=== PATIENT | female | born 1930 | race Caucasian/White ===

== ENCOUNTER 2016-08-25 11:12 | Inpatient (IN) ==
[2016-08-25] MEDS ORDERED: 0.9 % Sodium Chloride 1,000 ML IVC ONE (11:19)
--- NOTE | 2016-08-25 11:25 | Emergency Department Note ---
START Narrative - START START: I examined this patient and my medical decision-making was reviewed with the ADULT MANAGER/PA/Advanced Practice Nurse/Resident Physician. I agree with the documented findings, disposition and treatment plan as described except to the extent set forth below. ED attending note: Patient seen with emergency medicine resident Dr. Gale. Please see a copy of his note for details of the H&P, evaluation, management and disposition of this patient. We independently had [id number] contact with the patient Briefly: A 85-year-old PT from home, transported by EMS for 5 days ago and otherwise weakness unable to ambulate for the past 2 days with periods of increasing confusion and nausea. Patient is neurologically nonfocal now with an daughter at bedside states that she has been sleeping all the time for the past few days. Patient will undergo CT scan ED workup and admission. Disposition pending.
--- NOTE | 2016-08-25 11:26 | Emergency Department Note ---
Disposition Clinical Impression: Weakness, Altered mental status Disposition: Admitted As Inpatient Condition: Good Referrals: NO,PCP [Non-Partnered Physician] - Forms: ED Satisfaction Letter Time of Disposition: 14:14 General Adult HPI - General Chief complaint: ED Altered Mental Status Stated complaint: AMS Time Seen by Provider: 08/25/16 11:16 Source: patient, family, EMS Mode of arrival: EMS Limitations: altered mental status Nursing Notes Reviewed: Yes Vital Signs Reviewed: Yes - History of Present Illness HPI Narrative: Patient presents to the ED via EMS as a transfer from [place] emergency department for generalized weakness and altered mental status. Patient presented to the other emergency Department today from home. The chief complaint of weakness. Patient has a history of dementia and is at baseline mental status, but family states has been more sleepy than usual since they woke her up early this morning. States that she is normally fully ambulatory, but had to have help getting up to go to the bathroom today. Patient states that she just feels tired but otherwise has no symptoms. She denies any headache, changes in vision, chest pain, shortness of breath, nausea, vomiting, diarrhea, abdominal pain, numbness or weakness in her extremities. Family is concerned because they had to help her get up to the side of the bed and she normally does not have to have help. They state that she felt very weak in her legs and was having some slurred speech. Unsure of when this started - Related Data Previous Rx's Medication Instructions Recorded Ondansetron [Zofran ODT] 8 mg SL TID #15 tab.rapdis 08/24/16 Allergies Allergy/AdvReac Type Severity Reaction Status Date / Time Belladonna Alkaloids AdvReac Hives Verified 08/24/16 16:51 [From Bellergal-S] Ergotamine [From Bellergal-S] AdvReac Hives Verified 08/24/16 16:51 Penicillins AdvReac Hives Verified 08/24/16 16:49 phenobarbital AdvReac Hives Verified 08/24/16 16:51 [From Bellergal-S] Sulfa (Sulfonamide AdvReac Hives Verified 08/24/16 16:49 Antibiotics) All systems ED: reviewed and negative except as stated. Neurological: Reports: weakness, confusion Past Medical History - Past Medical History Attestation: Yes The following information was validated with the patient. Source: patient, old records reviewed - Social History Smoking Status: Never smoker Smokeless Tobacco Status: No Alcohol use: Reports: none Physical Exam - General Limitations: other (dementia ) General appearance: alert, in no apparent distress - Head Head exam: atraumatic, normocephalic, normal inspection - Eye Eye exam: Present: normal appearance, PERRL, EOMI - ENT ENT exam: normal exam, normal oropharynx, mucous membranes moist - Neck Neck exam: Present: normal inspection, full ROM, trachea midline - Chest Chest inspection: Present: normal inspection, symmetric chest wall rise - Respiratory Respiratory exam: Present: normal lung sounds bilaterally - Cardiovascular Cardiovascular exam: Present: regular rate, normal rhythm, normal heart sounds - Abdominal Exam Abdominal exam: Present: soft, Non-Tender. Absent: tenderness, distention, guarding, rebound, rigidity - Extremities Exam Extremities exam: Present: normal inspection, full ROM, normal capillary refill , pedal edema (mild ). Absent: tenderness - Expanded Lower Extremity Exam Hip/Pelvis exam: Present: pelvis stable - Neurological Exam Neurological exam: Present: alert, CN II-XII intact. Absent: oriented X3 ( Oriented to person and somewhat place. She knows her name, thinks she is in [place], but was at the [place] emergency department. Thinks it is 2001) - Expanded Neurological Exam Patient oriented to: Present: person, place, time Speech: Present: fluid speech (Patient's speech seems normal to me. However, the family states that they feel like she is slurring some words) Cranial nerves: EOM function (II, III, IV, ): Normal, facial sensation (V): Normal, facial palsy (VII): Normal, spinal accessory function (XI): Normal, tongue deviation (XII): Normal Cerebellar function: finger to nose: Normal Motor strength - LUE: 5/5 Motor strength - RUE: 5/5 Motor strength - LLE: 5/5 Motor strength - RLE: 5/5 Upper motor neuron exam: nery neglect: Absent bilaterally, pronator drift: Absent bilaterally Sensory exam upper extremity: light touch: Normal Sensory exam lower extremity: light touch: Normal Coma Scale Eye Opening: Spontaneous Coma Scale Motor Response: Obeys Commands Coma Scale Verbal Response: Oriented Coma Scale Total: 15 - Psychiatric Psychiatric exam: Present: normal affect, normal mood - Skin Skin exam: Present: warm, dry, intact, normal color Course Course Narrative: 85 -year-old female presenting with altered mental status, confusion and generalized weakness. Has been relatively healthy and at baseline otherwise. We will get a CT head, urinalysis, chest x-ray and labs. Likely admit. - Reevaluation(s) Reevaluation #1: Workup does not show anything focal. However, the family does have concerning. We will admit for MRI and further monitoring. Neurological exam remains normal Vital Signs Temperature 98.3 F 08/25/16 11:15 Pulse Rate 60 08/25/16 11:15 Respiratory Rate 18 08/25/16 11:15 Blood Pressure 162/83 08/25/16 11:15 O2 Sat by Pulse Oximetry 97 08/25/16 11:15 Temperature 98.3 F 08/25/16 11:15 Pulse Rate 69 08/25/16 13:38 Respiratory Rate 16 08/25/16 13:38 Blood Pressure 163/77 08/25/16 13:38 O2 Sat by Pulse Oximetry 98 08/25/16 13:38 Oxygen Delivery Oxygen Delivery Room Air Medical Decision Making - Medical Records Medical records reviewed: Yes I reviewed the patient's medical records. - Lab Data Lab results reviewed: Yes I reviewed the patient's lab results. Result diagrams: 08/25/16 11:40 08/25/16 11:40 Lab Results 08/25/16 08/25/16 08/25/16 Range/Units 11:31 11:40 11:40 WBC 7.1 (4.3-11.1) K/mcL RBC 4.54 (3.82-4.97) M/mcL Hgb 12.9 (11.5-15.4) g/dL Hct 38.6 (35.3-44.9) % MCV 85.0 (83.0-100.0) fL MCH 28.4 (28.0-33.3) pg MCHC 33.4 (31.6-35.5) g/dL RDW 13.1 (11.5-14.5) % Plt Count 186 (140-400) K/mcL MPV 11.0 (9.4-12.4) fL Immature Gran % 0.3 (0-4) % Seg Neutrophils % 75.3 % Lymphocytes % 15.9 % Monocytes % 7.9 % Eosinophils % 0.3 % Basophils % 0.3 % Neutrophils # 5.4 (1.6-8.9) K/mcL Lymphocytes # 1.1 (0.6-4.6) K/mcL Monocytes # 0.6 (0.0-1.3) K/mcL Eosinophils # 0.0 (0.0-0.6) K/mcL Basophils # 0.0 (0.0-0.2) K/mcL PT (9.4-12.1) Seconds INR APTT (26.0-36.0) Seconds Sodium (136-145) mEq/L Potassium (3.5-4.5) mEq/L Chloride (98-109) mEq/L Carbon Dioxide (19-29) mEq/L BUN (7-20) mg/dL Creatinine (0.57-1.11) mg/dL Est GFR ( Amer) (> 60) Est GFR (Non-Af Amer) (> 60) BUN/Creatinine Ratio (6-26) Glucose (70-99) mg/dL POC Glucose 85 (58-89) Calculated Osmolality (280-300) Calcium (8.6-10.8) mg/dL Total Bilirubin (0.2-1.2) mg/dL Direct Bilirubin (0.0-0.5) mg/dL Indirect Bilirubin (0.0-1.2) mg/dL AST (5-34) Units/L ALT (0-55) Units/L Alkaline Phosphatase (38-126) Units/L Creatine Kinase 62 (29-168) Units/L Troponin I (0-0.03) ng/mL Serum Total Protein (6.0-8.3) g/dL Albumin (3.5-5.0) g/dL Globulin (2.4-3.5) g/dL Albumin/Globulin Ratio (1.1-2.2) TSH (0.350-4.840) mcIU/mL Urine Color (Yellow) Urine Clarity (Clear) Urine pH (5.0-8.0) pH Units Ur Specific [place] (1.010-1.025) Urine Protein (Neg-Trace) mg/dL Urine Glucose (UA) (Normal) mg/dL Urine Ketones (Negative) mg/dL Urine Blood (Negative) Urine Nitrite (Negative) Urine Bilirubin (Negative) Urine Urobilinogen (Normal) mg/dL Ur Leukocyte Esterase (Negative) Ur Culture Indicated? (NO) Specimen Rejected 08/25/16 08/25/16 08/25/16 Range/Units 11:40 11:40 11:40 WBC (4.3-11.1) K/mcL RBC (3.82-4.97) M/mcL Hgb (11.5-15.4) g/dL Hct (35.3-44.9) % MCV (83.0-100.0) fL MCH (28.0-33.3) pg MCHC (31.6-35.5) g/dL RDW (11.5-14.5) % Plt Count (140-400) K/mcL MPV (9.4-12.4) fL Immature Gran % (0-4) % Seg Neutrophils % % Lymphocytes % % Monocytes % % Eosinophils % % Basophils % % Neutrophils # (1.6-8.9) K/mcL Lymphocytes # (0.6-4.6) K/mcL Monocytes # (0.0-1.3) K/mcL Eosinophils # (0.0-0.6) K/mcL Basophils # (0.0-0.2) K/mcL PT (9.4-12.1) Seconds INR APTT (26.0-36.0) Seconds Sodium 134 L (136-145) mEq/L Potassium 3.7 (3.5-4.5) mEq/L Chloride 100 (98-109) mEq/L Carbon Dioxide 25 (19-29) mEq/L BUN 19 (7-20) mg/dL Creatinine 1.19 H (0.57-1.11) mg/dL Est GFR ( Amer) 52 L (> 60) Est GFR (Non-Af Amer) 43 L (> 60) BUN/Creatinine Ratio 16 (6-26) Glucose 90 (70-99) mg/dL POC Glucose (58-89) Calculated Osmolality 280 (280-300) Calcium 9.3 (8.6-10.8) mg/dL Total Bilirubin 0.8 (0.2-1.2) mg/dL Direct Bilirubin 0.3 (0.0-0.5) mg/dL Indirect Bilirubin 0.5 (0.0-1.2) mg/dL AST 16 (5-34) Units/L ALT 10 (0-55) Units/L Alkaline Phosphatase 52 (38-126) Units/L Creatine Kinase (29-168) Units/L Troponin I 0.04 H* (0-0.03) ng/mL Serum Total Protein 6.4 (6.0-8.3) g/dL Albumin 3.6 (3.5-5.0) g/dL Globulin 2.8 (2.4-3.5) g/dL Albumin/Globulin Ratio 1.3 (1.1-2.2) TSH 1.293 (0.350-4.840) mcIU/mL Urine Color (Yellow) Urine Clarity (Clear) Urine pH (5.0-8.0) pH Units Ur Specific [place] (1.010-1.025) Urine Protein (Neg-Trace) mg/dL Urine Glucose (UA) (Normal) mg/dL Urine Ketones (Negative) mg/dL Urine Blood (Negative) Urine Nitrite (Negative) Urine Bilirubin (Negative) Urine Urobilinogen (Normal) mg/dL Ur Leukocyte Esterase (Negative) Ur Culture Indicated? (NO) Specimen Rejected Clotted 08/25/16 08/25/16 Range/Units 12:16 12:35 WBC (4.3-11.1) K/mcL RBC (3.82-4.97) M/mcL Hgb (11.5-15.4) g/dL Hct (35.3-44.9) % MCV (83.0-100.0) fL MCH (28.0-33.3) pg MCHC (31.6-35.5) g/dL RDW (11.5-14.5) % Plt Count (140-400) K/mcL MPV (9.4-12.4) fL Immature Gran % (0-4) % Seg Neutrophils % % Lymphocytes % % Monocytes % % Eosinophils % % Basophils % % Neutrophils # (1.6-8.9) K/mcL Lymphocytes # (0.6-4.6) K/mcL Monocytes # (0.0-1.3) K/mcL Eosinophils # (0.0-0.6) K/mcL Basophils # (0.0-0.2) K/mcL PT 10.7 (9.4-12.1) Seconds INR 1.0 APTT 22.7 L (26.0-36.0) Seconds Sodium (136-145) mEq/L Potassium (3.5-4.5) mEq/L Chloride (98-109) mEq/L Carbon Dioxide (19-29) mEq/L BUN (7-20) mg/dL Creatinine (0.57-1.11) mg/dL Est GFR ( Amer) (> 60) Est GFR (Non-Af Amer) (> 60) BUN/Creatinine Ratio (6-26) Glucose (70-99) mg/dL POC Glucose (58-89) Calculated Osmolality (280-300) Calcium (8.6-10.8) mg/dL Total Bilirubin (0.2-1.2) mg/dL Direct Bilirubin (0.0-0.5) mg/dL Indirect Bilirubin (0.0-1.2) mg/dL AST (5-34) Units/L ALT (0-55) Units/L Alkaline Phosphatase (38-126) Units/L Creatine Kinase (29-168) Units/L Troponin I (0-0.03) ng/mL Serum Total Protein (6.0-8.3) g/dL Albumin (3.5-5.0) g/dL Globulin (2.4-3.5) g/dL Albumin/Globulin Ratio (1.1-2.2) TSH (0.350-4.840) mcIU/mL Urine Color Yellow (Yellow) Urine Clarity Clear (Clear) Urine pH 6.5 (5.0-8.0) pH Units Ur Specific [place] 1.011 (1.010-1.025) Urine Protein Negative (Neg-Trace) mg/dL Urine Glucose (UA) Normal (Normal) mg/dL Urine Ketones Negative (Negative) mg/dL Urine Blood Negative (Negative) Urine Nitrite Negative (Negative) Urine Bilirubin Negative (Negative) Urine Urobilinogen Normal (Normal) mg/dL Ur Leukocyte Esterase Negative (Negative) Ur Culture Indicated? NO (NO) Specimen Rejected - Radiology Data Radiology results reviewed: Yes I reviewed the patient's radiology results. - EKG Data EKG #1 EKG attestation: Yes I reviewed and interpreted this EKG. EKG results narrative: Sinus bradycardia, rate 58, para 162, QRS 93, QTc 446, normal axis, no acute ischemic changes, no previous available S.Teofilo - Honorio Situation: Demographics, MOA Background: Presenting Complaint, Relevant PMH, Meds, & Allergies Assessment: Vital Signs, Course and respsone to treatment, Exam Concerns, Patient/Family Expectation, Pertinant Lab Results, Outstanding Labs Recommendation: Recommendation based on pending studies, treatments, or consults Honorio Report Given to: Dr. Carlos Olmedo Repor Time: 14:13
[2016-08-25 11:49] LABS: Basophils % 0.3 %; Eosinophils % 0.3 %; Hematocrit 38.6 % (35.3-44.9); Hemoglobin 12.9 g/dL (11.5-15.4); Immature Granulocytes % 0.3 % (0-4); Lymphocytes # 1.1 K/mcL (0.6-4.6); Lymphocytes % 15.9 %; Mean Corpuscular HGB Conc 33.4 g/dL (31.6-35.5); Mean Corpuscular Hemoglobin 28.4 pg (28.0-33.3); Monocytes # 0.6 K/mcL (0.0-1.3); Monocytes % 7.9 %; Neutrophils # 5.4 K/mcL (1.6-8.9); Platelet Count 186 K/mcL (140-400); Red Blood Count 4.54 M/mcL (3.82-4.97); Red Cell Distribution Width 13.1 % (11.5-14.5); Segmented Neutrophils % 75.3 %
[2016-08-25 12:02] LABS: Albumin 3.6 g/dL (3.5-5.0); Albumin/Globulin Ratio 1.3 (1.1-2.2); Bilirubin,Direct 0.3 mg/dL (0.0-0.5); Bilirubin,Indirect 0.5 mg/dL (0.0-1.2); Bilirubin,Total 0.8 mg/dL (0.2-1.2); Calcium 9.3 mg/dL (8.6-10.8); Globulin 2.8 g/dL (2.4-3.5); Potassium 3.7 mEq/L (3.5-4.5); Total Protein 6.4 g/dL (6.0-8.3)
[2016-08-25 12:23] LABS: Thyroid Stimulating Hormone 1.293 mcIU/mL (0.350-4.840)
[2016-08-25 12:30] LABS: Bilirubin,Urine Negative (Negative); Blood,Urine Negative (Negative); Clarity,Urine Clear (Clear); Color,Urine Yellow (Yellow); Glucose,Urine (UA) Normal (Normal); Ketones,Urine Negative (Negative); Leukocyte Esterase,Urine Negative (Negative); Nitrite,Urine Negative (Negative); PH,Urine 6.5 pH Units (5.0-8.0); Protein,Urine Negative (Neg-Trace); Specific Gravity,Urine 1.011 (1.010-1.025); Urobilinogen,Urine Normal (Normal)
[2016-08-25] MEDS ORDERED: Aspirin 81 MG TAB.CHEW PO ONE (12:55)
[2016-08-25 13:19] LABS: Activated Partial Thrombo Time 22.7 Seconds (26.0-36.0); Prothrombin Time 10.7 Seconds (9.4-12.1)
[2016-08-25] MEDS ORDERED: Acetaminophen 325 MG TABLET PO PRN (15:11)
[2016-08-25] MEDS ORDERED: Naloxone 0.4 MG/ML INJ IVP PRN (15:11)
[2016-08-25] MEDS ORDERED: Ondansetron 4 MG/2 ML VIAL IVP PRN (15:11)
[2016-08-25] MEDS ORDERED: *HR* Morphine 2 MG/ML SYRINGE IVP PRN (15:11)
[2016-08-25] MEDS ORDERED: *HR* OxyCODONE Immed Rel 5 MG TABLET PO PRN (15:11)
[2016-08-25] MEDS ORDERED: Ipratropium/Albuterol Neb 3 ML IH PRN (15:13)
--- NOTE | 2016-08-25 15:21 | Internal Med History&Physical ---
Date of Encounter: 08/25/16 Time of Encounter: 15:21 Assessment and Plan (1) Weakness Current visit: Yes Status: Acute Patient presented with lower extremity weakness and difficulty walking On examination, patient has no neurologic deficits She is at her baseline mental status and no facial paralysis or speech deficits However, I did notice tremulousness and jerky movements of her lower extremities R>L It is unlikely this patient has a CVA Per daughter, there was some slurred speech Will obtain Brain MRI to R/O any acute processes Home medication review and literature review reveals rivastigmine is associated with weakness and tremulousness in up to 23% of cases Will hold Rivastigmine for now Will continue her other medically necessary home medications Will consult neurology Patient is high risk due to aquity of onset of altered mental status and weakness, risk of falls and injury Fall precautions PT/OT consults (2) Altered mental status Current visit: Yes Status: Acute Possibly as a result of mild dehydration Patient has received 1L IVF in ER, will monitor Patient is at her baseline mental status at my time of review Qualifiers: Altered mental status type: transient alteration of awareness Qualified Code(s): R40.4 - Transient alteration of awareness (3) Dementia Current visit: Yes Status: Chronic Patient with known dementia Resume home medz except rivastigmine Fall precautions Qualifiers: Dementia type: Alzheimer's disease Alzheimer's disease onset: unspecified onset Dementia behavioral disturbance: with behavioral disturbance Qualified Code(s): G30.8 - Other Alzheimer's disease; F02.81 - Dementia in other diseases classified elsewhere with behavioral disturbance (4) CAD (coronary artery disease) Current visit: Yes Status: Chronic Continue home meds Qualifiers: Coronary Disease-Associated Artery/Lesion type: [place] artery [place] vs. transplanted heart: [place] heart Associated angina: without angina Qualified Code(s): I25.10 - Atherosclerotic heart disease of [place] coronary artery without angina pectoris (5) HTN (hypertension) Current visit: Yes Status: Chronic Controlled, continue meds Qualifiers: Hypertension type: essential hypertension Qualified Code(s): I10 - Essential (primary) hypertension (6) Depression Current visit: Yes Status: Chronic Continue home meds Patient denies suicidal ideation Qualifiers: Depression Type: unspecified Qualified Code(s): F32.9 - Major depressive disorder, single episode, unspecified (7) Nausea & vomiting Current visit: Yes Status: Acute No episodes noted in the hospital Possibly as a result of viral syndrome Patient tolerating orally Zofran prn Qualifiers: Vomiting type: unspecified Vomiting Intractability: non-intractable Qualified Code(s): R11.2 - Nausea with vomiting, unspecified (8) Prerenal azotemia Current visit: Yes Status: Acute Secondary to nausea and vomiting Received IVF already Monitor chem Internal Medicine - H&P: HPI Chief complaint: Weakness, confusion Admitted From: Home Plans for Post Hospital Care: [facility] History of present illness: Ms. Hector is a 85 year old female Patient is evaluated at bedside with her daughter, the one with whom she lives at night When asked why she is here, the patient states "Because my daughters brought me here, I am depressed, and I have been sick", she is unable to further elaborate on what she means by being sick. She however, denies chest pain, difficulty breathing or any form of pain Her daughter at the bedside reports that patient has a PMH of Dementia which has been worsening in the past two months with increased aggression towards caregivers, paranoid thoughts, poor appetite and weakness. However, patient is usually able to feed herself and go to the bathroom by herself, she ambulates with a walker at baseline. She lives by herself during the day with self-pay caregivers and stays with her daughter at night. Her daughter reports she was informed by the examining officer that the patient had multiple bouts of vomiting yesterday, she is unable to quantify how much, she reports patient also had nausea and drenching sweats. She denies patient complained of chest pain but they have noticed a general decline in patient's ability to care for herself recently. She was unable to support herself sitting up this morning, and unable to stand or walk, they have also noticed "jerking movements" and tremors of the patient' s lower extremities for about a few weeks, she also states patient's speech was slurred before arrival but appeared normal at my time of review The patient follows with Dr. Sarah for her dementia and family denies any new additions to patient's medications On evaluation in the ED, patient had an essentially normal exam and was presented to medicine for admission. Past Med Surg Social Fam HX - Past Medical History Medical history: non-contributory, asthma, coronary artery disease, dementia, hypertension, kidney stones, myocardial infarction Psychiatric history: depression - Social History Smoking Status: Never smoker Smokeless Tobacco Status: No Alcohol use: none Drug use: none Internal Medicine - H&P: Meds Ondansetron [Zofran ODT] 8 mg SL TID #15 tab.rapdis 08/24/16 [Rx] Acetaminophen [Tylenol Arthritis] 1,300 mg PO HS PRN 08/25/16 [History] Albuterol Sulfate [Proair Hfa] 2 puff IH Q4H PRN 08/25/16 [History] Aspirin 81 mg PO DAILY 08/25/16 [History] Brimonidine Tartrate [Alphagan P] 1 drop OP DAILY 08/25/16 [History] Captopril [Captopril] 50 mg PO TID 08/25/16 [History] Clopidogrel [Plavix] 75 mg PO DAILY 08/25/16 [History] Docusate [Colace] 100 mg PO BID PRN 08/25/16 [History] Escitalopram [Lexapro] 20 mg PO DAILY 08/25/16 [History] Estradiol [Estrace] 1 appl VG 3XW 08/25/16 [History] Hydrochlorothiazide 12.5 mg PO DAILY 08/25/16 [History] Ipratropium/Albuterol Neb [Duoneb] 3 ml IH Q6HR PRN 08/25/16 [History] L. Acidophilus/Pectin, Benjamin Perez [Acidophilus Probiotic Capsule] 1 cap PO DAILY [History] Loratadine [Allergy Relief] 10 mg PO DAILY 08/25/16 [History] Melatonin 3 mg PO HS PRN 08/25/16 [History] Metoprolol [Lopressor] 25 mg PO BID 08/25/16 [History] Mirtazapine [Remeron] 15 mg PO HS 08/25/16 [History] Nitroglycerin [Nitrostat] 0.4 mg SL AD PRN 08/25/16 [History] Omeprazole [PriLOSEC] 20 mg PO BIDAC 08/25/16 [History] Polyvinyl Alcohol/Povidone/Pf [Refresh Classic Eye Drops] 1 drop OP DAILY [History] Quetiapine Fumarate [SEROquel] 12.5 - 25 mg PO HS PRN 08/25/16 [History] Rivastigmine Tartrate (oral) [Exelon] 4.5 mg PO BID 08/25/16 [History] Allergies Belladonna Alkaloids [From Bellergal-S] Adverse Reaction (Verified 08/24/16 16: 51) Hives Ergotamine [From Bellergal-S] Adverse Reaction (Verified 08/24/16 16:51) Hives Penicillins Adverse Reaction (Verified 08/24/16 16:49) Hives phenobarbital [From Bellergal-S] Adverse Reaction (Verified 08/24/16 16:51) Hives Sulfa (Sulfonamide Antibiotics) Adverse Reaction (Verified 08/24/16 16:49) Hives All Systems PM: A 10-system review of systems was performed and is negative for pertinent findings except as documented above in the HPI. - Constitutional Constitutional: no chills, no fever(s), no night sweats - EENT Eyes: no change in vision, no discharge, no pain, no photophobia Ears: no ear discharge, no ear pain, no tinnitus Nose, mouth and throat: no dysphagia, no nasal discharge, no neck pain, no sore throat - Cardiovascular Cardiovascular ROS IM: no chest pain, no diaphoresis, no dyspnea, no lightheadedness, no palpitations, no syncope - Respiratory Respiratory: no cough, no dyspnea, no wheezing, no excessive phlegm production - Gastrointestinal Gastrointestinal: as per HPI - Genitourinary Genitourinary: as per HPI - Musculoskeletal Musculoskeletal ROS IM: as per HPI - Integumentary Integumentary IM: as per HPI - Neurological Neurological ROS: as per HPI - Endocrine Endocrine IM: as per HPI - Hematologic/Lymphatic Hematologic/Lymphatic: as per HPI - Constitutional Vitals: Temp Pulse Resp BP Pulse Ox 98.3 F 70 18 134/70 97 08/25/16 11:15 08/25/16 15:14 08/25/16 15:14 08/25/16 15:14 08/25/16 15:14 Exam: Physical Exam Vitals are stable, HR was ~60 upon arrival but has remained WNL, BP WNL, afebrile Neuro: alert, awake, oriented X2, patient opens eye to name call, GCS is 15, I did notice some jerking movements of her lower extremities, she has no motor or sensory deficits, her speech is not slurred and she has no facial paralysis Chest: No chest wall tenderness, CTAB, no wheezes or rhonchi, no crackles Heart: S1, S2 only, no m/g/r no JVD Abdomen: Obese, soft, not tender, no palpably enlarged organs, BS present in all quadrants Extremities: No edema Internal Med - H&P Results - Labs CBC & Chem 7: 08/25/16 11:40 08/25/16 11:40 Labs: Labs and Imaging reviewed: Head CT: Chronic microvascular changes, 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
[2016-08-25] MEDS: Mirtazapine 15 MG TABLET PO SCH (20:23)
[2016-08-25] MEDS ORDERED: Rivastigmine Tartrate (oral) 1.5 MG CAPSULE PO SCH (21:00)
[2016-08-25] MEDS: Melatonin 3 MG TABLET PO PRN (22:55)
[2016-08-26 01:11] LABS: Basophils % 0.5 %; Eosinophils # 0.1 K/mcL (0.0-0.6); Eosinophils % 2.1 %; Hematocrit 34.8 % (35.3-44.9); Hemoglobin 11.5 g/dL (11.5-15.4); Immature Granulocytes % 0.5 % (0-4); Lymphocytes # 1.9 K/mcL (0.6-4.6); Mean Corpuscular Hemoglobin 28.5 pg (28.0-33.3); Mean Corpuscular Volume 86.1 fL (83.0-100.0); Monocytes # 0.6 K/mcL (0.0-1.3); Monocytes % 9.9 %; Neutrophils # 3.2 K/mcL (1.6-8.9); Platelet Count 160 K/mcL (140-400); Red Blood Count 4.04 M/mcL (3.82-4.97); Red Cell Distribution Width 13.2 % (11.5-14.5)
[2016-08-26 01:22] LABS: Calcium 8.6 mg/dL (8.6-10.8); Potassium 3.5 mEq/L (3.5-4.5)
[2016-08-26] MEDS: Lactobacillus 1 EACH CAP.SPRINK PO SCH (08:39)
[2016-08-26] MEDS: Aspirin 81 MG TAB.CHEW PO SCH (08:39)
[2016-08-26] MEDS: Artificial Tears SOLN 15 ML BOTTLE OP SCH (08:40)
[2016-08-26] MEDS: Loratadine 10 MG TABLET PO SCH (08:40)
--- NOTE | 2016-08-26 09:55 | Neurology - Consult Note ---
Date of Encounter: 08/26/16 Time of Encounter: 09:49 Assessment and Plan (1) Altered mental status Current Visit: Yes Status: Acute Likely secondary to acute encephalopathy secondary to medical conditions. She has had nausea diaphoresis as initial symptoms without any focal neurological deficits. Unlikely secondary to primary neurological disorder. Does have baseline cognitive impairment but mental status is improving as medical condition, renal function improve. Agree with obtaining MRI of brain to rule out intracranial abnormality. If MRI of brain returns negative then no storke work up appears necessary. If MRI of brain showed acute infarct then will initiate stroke work up. Please continue medical and supportive care. Patient can be followed up in neurology for her symptoms of dementia. Okay to discontinue Rivastagmine for now. Thank you very much for the consultation Qualifiers: Altered mental status type: transient alteration of awareness Qualified Code(s): R40.4 - Transient alteration of awareness History of Present Illness Chief complaint: altered mental status and generalized weakness HPI: Ms. Hector is a 86 year old female with PMH significant for HTN, hyperlipidemia, CAD, dementia who developed acute onset of nausea, associated with diaphoresis, generalized weakness and hypersomnolence. Patient interviewed in the presence of her daughter. Patient has baseline dementia. Lives with her daughter, who found her to develop nausea, and was really diaphoretic. She appears weak and her daughter could not get her up therefore she was brought to ER. One time she was thought to have slurred speech, but no focal weakness was noted. No seizure activity. Initial CT of head was reported negative for acute intracranial changes. Neurology was consulted for possible stroke, although this thought to be unlikely. At the time of this interview, the patient's symptoms improved. She has no acute distress and can answer questions appropriately. She does have baseline dementia. Is currently oriented to time, date of but is confused where she is now. No headaches. Past Med Surg Social Fam HX - Past Medical History Medical history: non-contributory, asthma, coronary artery disease, dementia, hypertension, kidney stones, myocardial infarction Psychiatric history: depression - Social History Smoking Status: Never smoker Smokeless Tobacco Status: No Alcohol use: none Drug use: none - Family History Mother Living Status: Hx Family Cardiac Disorders: Yes Medications and Allergies Ondansetron [Zofran ODT] 8 mg SL TID #15 tab.rapdis 08/24/16 [Rx] Acetaminophen [Tylenol Arthritis] 1,300 mg PO HS PRN 08/25/16 [History] Albuterol Sulfate [Proair Hfa] 2 puff IH Q4H PRN 08/25/16 [History] Aspirin 81 mg PO DAILY 08/25/16 [History] Brimonidine Tartrate [Alphagan P] 1 drop OP DAILY 08/25/16 [History] Captopril [Captopril] 50 mg PO TID 08/25/16 [History] Clopidogrel [Plavix] 75 mg PO DAILY 08/25/16 [History] Docusate [Colace] 100 mg PO BID PRN 08/25/16 [History] Escitalopram [Lexapro] 20 mg PO DAILY 08/25/16 [History] Estradiol [Estrace] 1 appl VG 3XW 08/25/16 [History] Hydrochlorothiazide 12.5 mg PO DAILY 08/25/16 [History] Ipratropium/Albuterol Neb [Duoneb] 3 ml IH Q6HR PRN 08/25/16 [History] L. Acidophilus/Pectin, [place] [Acidophilus Probiotic Capsule] 1 cap PO DAILY [History] Loratadine [Allergy Relief] 10 mg PO DAILY 08/25/16 [History] Melatonin 3 mg PO HS PRN 08/25/16 [History] Metoprolol [Lopressor] 25 mg PO BID 08/25/16 [History] Mirtazapine [Remeron] 15 mg PO HS 08/25/16 [History] Nitroglycerin [Nitrostat] 0.4 mg SL AD PRN 08/25/16 [History] Omeprazole [PriLOSEC] 20 mg PO BIDAC 08/25/16 [History] Polyvinyl Alcohol/Povidone/Pf [Refresh Classic Eye Drops] 1 drop OP DAILY [History] Quetiapine Fumarate [SEROquel] 12.5 - 25 mg PO HS PRN 08/25/16 [History] Rivastigmine Tartrate (oral) [Exelon] 4.5 mg PO BID 08/25/16 [History] Allergies Belladonna Alkaloids [From Bellergal-S] Adverse Reaction (Verified 08/24/16 16: 51) Hives Ergotamine [From Bellergal-S] Adverse Reaction (Verified 08/24/16 16:51) Hives Penicillins Adverse Reaction (Verified 08/24/16 16:49) Hives phenobarbital [From Bellergal-S] Adverse Reaction (Verified 08/24/16 16:51) Hives Sulfa (Sulfonamide Antibiotics) Adverse Reaction (Verified 08/24/16 16:49) Hives All Systems: A 10-system review of systems was performed and is negative for pertinent findings except as documented above in the HPI. Physical Examination - Vital Signs Vital Signs: Initial Vital Signs Temp Pulse Resp BP Pulse Ox 98.3 F 60 18 162/83 97 08/25/16 11:15 08/25/16 11:15 08/25/16 11:15 08/25/16 11:15 08/25/16 11:15 - Constitutional General appearance: comfortable - Neurologic Sensorimotor examination: intact (Grossly intact) Detailed motor examination: grossly full strength in all extremities (Grossly intact. No facal weakness noted. Patient is sitting in bed eating. ) Detailed sensory examination: intact (Grossly intact) Posture: other (NOne) Reflexes: Biceps: 1+, Triceps: 1+, Brachioradialis: 1+, Patella: 1+, Achilles: 1 + Mental Status Examination: awake, alert, oriented to person, oriented to place, oriented to time, follows commands appropriately, answers questions appropriately, no agnosia, no aphasia, no aproxia Results - Laboratory Findings CBC and BMP: 08/26/16 00:49 08/26/16 00:49 Abnormal lab findings: Abnormal lab results Hct 34.8 % (35.3-44.9) L 08/26/16 00:49 APTT 22.7 Seconds (26.0-36.0) L 08/25/16 12:35 Est GFR ( Amer) 58 (> 60) L 08/26/16 00:49 Est GFR (Non-Af Amer) 48 (> 60) L 08/26/16 00:49 POC Glucose 97 (58-89) H 08/25/16 22:08 Consult Discharge Plan - Plan Referrals: Elliot Barahona DO [Primary Care Provider] -
--- NOTE | 2016-08-26 12:27 | Internal Med Progress Note ---
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 (2) Weakness Current Visit: Yes Status: Acute Assessment and plan: Secondary to CVA Continue to hold rivastigmine Neuro eval appreciated Fall precautions (3) Altered mental status Current Visit: Yes Status: Resolved Assessment and plan: Patient is supposedly back at baseline per family members May have been as a result of dehydration/azotemia Qualifiers: Altered mental status type: transient alteration of awareness Qualified Code(s): R40.4 - Transient alteration of awareness (4) Dementia Current Visit: Yes Status: Chronic Assessment and plan: Patient with known dementia Continue home medz except rivastigmine Fall precautions Qualifiers: Dementia type: Alzheimer's disease Alzheimer's disease onset: unspecified onset Dementia behavioral disturbance: with behavioral disturbance Qualified Code(s): G30.8 - Other Alzheimer's disease; F02.81 - Dementia in other diseases classified elsewhere with behavioral disturbance (5) CAD (coronary artery disease) Current Visit: Yes Status: Chronic Assessment and plan: Continue home meds Qualifiers: Coronary Disease-Associated Artery/Lesion type: [place] artery [place] vs. transplanted heart: [place] heart Associated angina: without angina Qualified Code(s): I25.10 - Atherosclerotic heart disease of [place] coronary artery without angina pectoris (6) HTN (hypertension) Current Visit: Yes Status: Chronic Assessment and plan: Controlled, continue home meds Qualifiers: Hypertension type: essential hypertension Qualified Code(s): I10 - Essential (primary) hypertension (7) Depression Current Visit: Yes Status: Chronic Assessment and plan: Continue home meds Qualifiers: Depression Type: unspecified Qualified Code(s): F32.9 - Major depressive disorder, single episode, unspecified (8) Nausea & vomiting Current Visit: Yes Status: Resolved Qualifiers: Vomiting type: unspecified Vomiting Intractability: non-intractable Qualified Code(s): R11.2 - Nausea with vomiting, unspecified (9) Prerenal azotemia Current Visit: Yes Status: Acute Assessment and plan: Improved with IVF Encourage liberal fluid intake - Subjective Interval history: Seen at bedside sitting in chair No new complaints Noted today is the slight facial droop that wasn't noted yesterday Also MRI showed small lacunar infract Neurology input appreciated PT/OT recommends SNF - Constitutional Vitals: Temp Pulse Resp BP Pulse Ox 97.9 F 68 17 134/74 93 08/26/16 08:29 08/26/16 08:29 08/26/16 08:29 08/26/16 08:29 08/26/16 10:35 General appearance: Present: A&O X 2, pleasant, no acute distress - Head Head exam: Present: atraumatic, normocephalic - Eye Eye exam: Present: EOMI, PERRL, conjuntiva pink, sclera anicteric - ENT ENT exam: Present: mucous membranes moist - Neck Neck exam general surgery: Present: supple, trachea midline. Absent: lymphadenopathy - Respiratory Respiratory exam: Present: CTAB. Absent: accessory muscle use, rales, rhonchi, wheezes - Cardiovascular Cardiovascular exam: Present: RRR, +S1, +S2. Absent: diastolic murmur, gallop, rubs, systolic murmur - GI/Abdominal GI/Abdominal exam: Present: normal bowel sounds, soft, no peritoneal signs. Absent: distended, tenderness - Extremities Exam Extremities exam: Absent: pedal edema - Neurological Exam Neurological exam: Present: alert, strengths equal and symetr throughout, facial droop. Absent: oriented X3, pronater drift, speech deficit - Skin Skin exam: Present: dry, intact Internal Medicine: Result - Labs CBC & Chem 7: 08/26/16 00:49 08/26/16 00:49 - ABG Interpretation ABG results: PT/INR, D-dimer PT 10.7 Seconds (9.4-12.1) 08/25/16 12:35 Consult Discharge Plan - Plan Instructions: Chronic Hypertension (DC) Referrals: Elliot Barahona DO [Primary Care Provider] - 09/02/16 1:00 pm (Scheduled with CANDIDA Morgan. )
[2016-08-26] MEDS ORDERED: *HR* OxyCODONE Immed Rel 5 MG TABLET PO PRN (12:28)
[2016-08-26] MEDS: *HR* Heparin 5,000 UNIT/ML VIAL SQ SCH ×2 (14:50→22:18)
--- NOTE | 2016-08-26 17:15 | Electrocardiograph Report ---
[place] [id number] Test Date: 2016-08-25 Pat Name: Eleanor Hector Department: 104 Room: 23 Gender: F Carpentry Supervisor: OSEI : 1930 Requested By: James Gale Order Number: [id number] Reading MD: Jody Felix Measurements Intervals [place] Rate: 58 P: 78 OR: 162 QRS: 25 QRSD: 93 T: 20 QT: 448 QTc: 446 Interpretive Statements SINUS BRADYCARDIA Electronically Signed On 08-26-2016 17:14:07 EDT by Jody Felix
[2016-08-26] MEDS: Melatonin 3 MG TABLET PO PRN (22:16)
[2016-08-26] MEDS: Mirtazapine 15 MG TABLET PO SCH (22:16)
[2016-08-27] MEDS: *HR* Heparin 5,000 UNIT/ML VIAL SQ SCH ×3 (06:56→20:45)
[2016-08-27] MEDS: Artificial Tears SOLN 15 ML BOTTLE OP SCH (08:34)
[2016-08-27] MEDS: Lactobacillus 1 EACH CAP.SPRINK PO SCH (08:35)
[2016-08-27] MEDS: Aspirin 81 MG TAB.CHEW PO SCH (08:35)
[2016-08-27] MEDS: Loratadine 10 MG TABLET PO SCH (08:36)
--- NOTE | 2016-08-27 10:01 | Internal Med Progress Note ---
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 (2) Weakness Current Visit: Yes Status: Acute Assessment and plan: Secondary to CVA Continue to hold rivastigmine Neuro eval appreciated Fall precautions (3) Altered mental status Current Visit: Yes Status: Resolved Assessment and plan: Patient is supposedly back at baseline per family members May have been as a result of dehydration/azotemia Qualifiers: Altered mental status type: transient alteration of awareness Qualified Code(s): R40.4 - Transient alteration of awareness (4) Dementia Current Visit: Yes Status: Chronic Assessment and plan: Patient with known dementia Continue home medz except rivastigmine Fall precautions Qualifiers: Dementia type: Alzheimer's disease Alzheimer's disease onset: unspecified onset Dementia behavioral disturbance: with behavioral disturbance Qualified Code(s): G30.8 - Other Alzheimer's disease; F02.81 - Dementia in other diseases classified elsewhere with behavioral disturbance (5) CAD (coronary artery disease) Current Visit: Yes Status: Chronic Assessment and plan: Continue home meds Qualifiers: Coronary Disease-Associated Artery/Lesion type: [place] artery [place] vs. transplanted heart: [place] heart Associated angina: without angina Qualified Code(s): I25.10 - Atherosclerotic heart disease of [place] coronary artery without angina pectoris (6) HTN (hypertension) Current Visit: Yes Status: Chronic Assessment and plan: Controlled, continue home meds Qualifiers: Hypertension type: essential hypertension Qualified Code(s): I10 - Essential (primary) hypertension (7) Depression Current Visit: Yes Status: Chronic Assessment and plan: Continue home meds Qualifiers: Depression Type: unspecified Qualified Code(s): F32.9 - Major depressive disorder, single episode, unspecified (8) Nausea & vomiting Current Visit: Yes Status: Resolved Qualifiers: Vomiting type: unspecified Vomiting Intractability: non-intractable Qualified Code(s): R11.2 - Nausea with vomiting, unspecified (9) Prerenal azotemia Current Visit: Yes Status: Acute Assessment and plan: Improved with IVF Encourage liberal fluid intake - Subjective Interval history: Seen at bedside Patient is sleeping, but easily arousable. She remains oriented 2. Her daughter at the bedside bedside mentioned some concern for unequal Pupils overnight Pupils were and are equal, and reactive bilaterally on exam She is otherwise stable and awaiting SNF placement - Constitutional Vitals: Temp Pulse Resp BP Pulse Ox 97.8 F 53 16 157/76 99 08/27/16 08:25 08/27/16 08:25 08/27/16 08:25 08/27/16 08:25 08/27/16 06:41 General appearance: Present: A&O X 2, pleasant, no acute distress - Head Head exam: Present: atraumatic, normocephalic - Eye Eye exam: Present: PERRL, conjuntiva pink, sclera anicteric Pupils: Present: PERRL - Neck Neck exam general surgery: Present: supple, trachea midline. Absent: lymphadenopathy - Respiratory Respiratory exam: Present: CTAB. Absent: accessory muscle use, rales, rhonchi, wheezes - Cardiovascular Cardiovascular exam: Present: RRR, +S1, +S2. Absent: diastolic murmur, gallop, rubs, systolic murmur - GI/Abdominal GI/Abdominal exam: Present: normal bowel sounds, soft, no peritoneal signs. Absent: distended, tenderness - Extremities Exam Extremities exam: Present: warm, radial pulses palpable and symetrical. Absent : calf tenderness, cyanotic, pedal edema - Neurological Exam Neurological exam: Present: alert, CN II-XII intact, no focal deficits, facial droop. Absent: oriented X3, pronater drift, speech deficit - Skin Skin exam: Present: dry, intact Internal Medicine: Result - Labs CBC & Chem 7: 08/26/16 00:49 08/26/16 00:49 - ABG Interpretation ABG results: PT/INR, D-dimer PT 10.7 Seconds (9.4-12.1) 08/25/16 12:35 Consult Discharge Plan - Plan Instructions: Chronic Hypertension (DC) Referrals: Elliot Barahona DO [Primary Care Provider] - 09/02/16 1:00 pm (Scheduled with [employer] Raeann Morgan. )
--- NOTE | 2016-08-27 11:03 | ECHO - Doppler Report ---
Echo with Saline Contrast Name: Eleanor Hector Date of Study: 08/26/2016 Date: 1930 Ht: 63.0 in Medical Record#: [id number] Age: 86 Wt: 195.0 lb Gender: Female BSA: 1.91 Order #: [id number] Location: [facility] Room #: 2A23 Reading Physician: Raul Delaney MD, [facility] Solar Electric Installer: LUCIANA FossT Ordering Physician: Renetta Crook MD Primary Physician: Elliot Barahona DO Indications: Cerebrovascular Accident Impressions: LVEF 60-65%. No pulmonary hypertension. Moderate aortic regurgitation. Mild left ventricular diastolic dysfunction. No interatrial septal defect noted If clinically indicated, ELISA would provide improved diagnostic accuracy for cardioembolic source. Left Ventricular Wall Motion: Rest Echo Findings All wall segments showed normal motion. Findings: Study Quality * Technically adequate exam. Right Ventricle * Normal right ventricular structure and function. Left Atrium * Normal left atrial size. Right Atrium * Normal right atrial size. Interatrial Septum * No evidence of PFO by color Doppler. Aorta * Normally sized aortic root. Pericardium * The pericardium appears normal. ECG Findings * Normal sinus rhythm. Mitral Valve * No mitral regurgitation. * No mitral stenosis. * Moderate mitral annular calcification Tricuspid Valve * Trace tricuspid regurgitation. * Estimated RVSP is 32 mmHg. * Estimated RA pressure is 3-5 mmHg. * No pulmonary hypertension. Pulmonic Valve * No pulmonic stenosis. * Mild pulmonic regurgitation. Aortic Valve * No aortic stenosis. * Moderate aortic regurgitation. * Trileaflet aortic valve. Left Ventricle * Mild left ventricular diastolic dysfunction. * LVEF 60-65%. IVC * Normal IVC dimensions and inspiratory collapse. History Hypertension History of CAD/PTCA Myocardial Infarction Contrast: Agitated saline 20 ml. Measurements: BP: 120/ 72 2D Normal Values RVIDd: 3.90 cm <2.7 cm IVSd: 1.00 cm 0.6 - 1.0 cm LVIDd: 3.80 cm 3.7 - 5.6 cm LVPWd: .80 cm 0.6 - 1.1 cm LVIDs: 2.70 cm 1.5 - 3.6 cm AO: 2.60 cm < 4.0 cm LA: 3.50 cm 2.0 - 4.0cm %FS: 28.90 cm >25 % LA volume: 62 Mitral Valve Peak E:1.09 m/sec Peak A:1.45 m/sec E/A Ratio:0.8 Peak E' Lat Greyson:8.87 cm/s Peak E' Med Greyson:5.65 cm/s E/E' Lat Ratio:12.3 E/E' Med Ratio:19.3 Aortic Valve Pressure 1/2 time:480.00 msec AI pressure Half-time: 480.00 msec Tricuspid Valve TV Regurg Peak Grad: 32.00mmHg TV Regurg Peak Greyson: 2.85m/sec Updated by Raul Delaney MD, FACC on 08/27/2016 10:47:46 AM electronically signed on 08/27/2016 10:59:51 AM with status of Final Wall Motion Chaney: 1=Normal, 2=Hypokinesis, 3=Akinesis, 4=Dyskinesis, 5=Aneurysmal, 6=Hyperkinetic, X=Not Visualized (Blank)=Missing
--- NOTE | 2016-08-27 14:29 | Carotid Imaging Report ---
Carotid Duplex Patient Name:Eleanor Hector Order Number:[id number] Procedure Date:08/26/2016 Date:1930ge:86 yrs Gender:Female Lt BP:120 / 72 mmHg Rt.BP:126 / 76 mmHgHeart Rate: Location[facility] Room #: 2A23 [place] Presser:Miranda Alfonso RVT Referring MD:Renetta Crook MD glove brusher:Elliot Barahona DO Reading MD:Addi Gay MD Risk Factors Yes/No Hypertension Yes Impressions: Findings: Bilateral carotid system has nonstenotic plaque. Findings Carotid Duplex: Right: There is nonstenotic plaque in the right bifurcation. There is smooth heterogeneous plaque. There is nonstenotic plaque in the right proximal internal carotid artery. There is smooth heterogeneous plaque. Left: There is nonstenotic plaque in the left bifurcation. There is smooth heterogeneous plaque. There is nonstenotic plaque in the left proximal internal carotid artery. There is smooth heterogeneous plaque. Prior Study: No prior study available for comparison. Carotid Results Right PSV EDV Assessment Proximal CCA 88 7 Normal Mid CCA 89 7 Normal Distal CCA 77 7 Normal Bifurcation 38 4 Non Stenotic Plaque Proximal ICA 54 11 Non Stenotic Plaque Mid ICA 78 11 Normal Distal ICA 38 8 Normal ECA 127 9 Normal Vertebral Artery 47 6 Antegrade Flow Left PSV EDV Assessment Proximal CCA 87 12 Normal Mid CCA 61 8 Normal Distal CCA 71 8 Normal Bifurcation 65 9 Non Stenotic Plaque Proximal ICA 56 8 Non Stenotic Plaque Mid ICA 66 14 Normal Distal ICA 62 14 Normal ECA 93 13 Normal Vertebral Artery 44 6 Antegrade Flow Ratio's Right ICA/CCA Ratio: 0.87 ICA/CCA Values: 78/89 Left ICA/CCA Ratio: 1.08 ICA/CCA Values: 66/61 Updated by Addi Gay MD on 08/27/2016 2:21:39 PM electronically signed on 08/27/2016 2:25:02 PM with status of Final
[2016-08-27] MEDS: Melatonin 3 MG TABLET PO PRN (20:44)
[2016-08-27] MEDS: Mirtazapine 15 MG TABLET PO SCH (20:45)
[2016-08-28] MEDS: *HR* Heparin 5,000 UNIT/ML VIAL SQ SCH ×3 (06:15→21:55)
[2016-08-28] MEDS: Artificial Tears SOLN 15 ML BOTTLE OP SCH (08:26)
[2016-08-28] MEDS: Loratadine 10 MG TABLET PO SCH (08:27)
[2016-08-28] MEDS: Lactobacillus 1 EACH CAP.SPRINK PO SCH (08:27)
[2016-08-28] MEDS: Aspirin 81 MG TAB.CHEW PO SCH (08:27)
--- NOTE | 2016-08-28 12:53 | Internal Med Progress Note ---
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 (2) Weakness Current Visit: Yes Status: Acute Assessment and plan: Secondary to CVA Continue to hold rivastigmine Neuro eval appreciated Fall precautions IN-patient vinny as soon as accepted (3) Altered mental status Current Visit: Yes Status: Resolved Assessment and plan: Patient is supposedly back at baseline per family members May have been as a result of dehydration/azotemia Qualifiers: Altered mental status type: transient alteration of awareness Qualified Code(s): R40.4 - Transient alteration of awareness (4) Dementia Current Visit: Yes Status: Chronic Assessment and plan: Patient with known dementia Continue home medz except rivastigmine Fall precautions Qualifiers: Dementia type: Alzheimer's disease Alzheimer's disease onset: unspecified onset Dementia behavioral disturbance: with behavioral disturbance Qualified Code(s): G30.8 - Other Alzheimer's disease; F02.81 - Dementia in other diseases classified elsewhere with behavioral disturbance (5) CAD (coronary artery disease) Current Visit: Yes Status: Chronic Assessment and plan: Continue home meds Qualifiers: Coronary Disease-Associated Artery/Lesion type: [place] artery [place] vs. transplanted heart: [place] heart Associated angina: without angina Qualified Code(s): I25.10 - Atherosclerotic heart disease of [place] coronary artery without angina pectoris (6) HTN (hypertension) Current Visit: Yes Status: Chronic Assessment and plan: Controlled, continue home meds Qualifiers: Hypertension type: essential hypertension Qualified Code(s): I10 - Essential (primary) hypertension (7) Depression Current Visit: Yes Status: Chronic Assessment and plan: Continue home meds Qualifiers: Depression Type: unspecified Qualified Code(s): F32.9 - Major depressive disorder, single episode, unspecified (8) Nausea & vomiting Current Visit: Yes Status: Resolved Qualifiers: Vomiting type: unspecified Vomiting Intractability: non-intractable Qualified Code(s): R11.2 - Nausea with vomiting, unspecified (9) Prerenal azotemia Current Visit: Yes Status: Acute - Subjective Interval history: Seen at bedside Awake, denies new complains being managed for acute CVA, awaiting in-pt rehab placement L facial droop looks better today She remains oriented 2. - Constitutional Vitals: Temp Pulse Resp BP Pulse Ox 97.8 F 68 16 123/69 97 08/28/16 10:43 08/28/16 10:43 08/28/16 10:43 08/28/16 10:43 08/28/16 10:43 General appearance: Present: A&O X 2, pleasant, no acute distress, obese - Head Head exam: Present: atraumatic, normocephalic - Eye Eye exam: Present: PERRL, conjuntiva pink, sclera anicteric Pupils: Present: PERRL - Neck Neck exam general surgery: Present: supple, trachea midline. Absent: lymphadenopathy - Respiratory Respiratory exam: Present: CTAB. Absent: accessory muscle use, rales, rhonchi, wheezes - Cardiovascular Cardiovascular exam: Present: RRR, +S1, +S2. Absent: diastolic murmur, gallop, rubs, systolic murmur - GI/Abdominal GI/Abdominal exam: Present: normal bowel sounds, soft, no peritoneal signs. Absent: distended, tenderness - Extremities Exam Extremities exam: Present: warm, radial pulses palpable and symetrical. Absent : calf tenderness, cyanotic, pedal edema - Neurological Exam Neurological exam: Present: alert, CN II-XII intact, no focal deficits. Absent : oriented X3, pronater drift, facial droop, speech deficit - Skin Skin exam: Present: dry, intact Internal Medicine: Result - Labs CBC & Chem 7: 08/26/16 00:49 08/26/16 00:49 - ABG Interpretation ABG results: PT/INR, D-dimer PT 10.7 Seconds (9.4-12.1) 08/25/16 12:35 Consult Discharge Plan - Plan Instructions: Chronic Hypertension (DC) Referrals: Elliot Barahona DO [Primary Care Provider] - 09/02/16 1:00 pm (Scheduled with [employer] Raeann Morgan. )
[2016-08-28] MEDS: Mirtazapine 15 MG TABLET PO SCH (21:55)
[2016-08-29] MEDS: *HR* Heparin 5,000 UNIT/ML VIAL SQ SCH ×2 (05:46→14:27)
[2016-08-29] MEDS: Loratadine 10 MG TABLET PO SCH (08:58)
[2016-08-29] MEDS: Aspirin 81 MG TAB.CHEW PO SCH (08:58)
[2016-08-29] MEDS: Lactobacillus 1 EACH CAP.SPRINK PO SCH (08:58)
[2016-08-29] MEDS: Artificial Tears SOLN 15 ML BOTTLE OP SCH (09:01)
--- NOTE | 2016-08-29 09:50 | Discharge Summary ---
Date of Encounter: 08/29/16 Time of Encounter: 09:49 - Discharge Diagnosis (1) CVA (cerebral vascular accident) Priority: Primary Status: Acute Qualifiers: CVA mechanism: thrombosis Precerebral and cerebral artery: unspecified cerebral artery Qualified Code(s): I63.30 - Cerebral infarction due to thrombosis of unspecified cerebral artery (2) Weakness Priority: Primary Status: Acute (3) Altered mental status Priority: Primary Status: Resolved Qualifiers: Altered mental status type: transient alteration of awareness Qualified Code(s): R40.4 - Transient alteration of awareness (4) Dementia Priority: Secondary Status: Chronic Qualifiers: Dementia type: Alzheimer's disease Alzheimer's disease onset: unspecified onset Dementia behavioral disturbance: with behavioral disturbance Qualified Code(s): G30.8 - Other Alzheimer's disease; F02.81 - Dementia in other diseases classified elsewhere with behavioral disturbance (5) CAD (coronary artery disease) Priority: Secondary Status: Chronic Qualifiers: Coronary Disease-Associated Artery/Lesion type: [place] artery [place] vs. transplanted heart: [place] heart Associated angina: without angina Qualified Code(s): I25.10 - Atherosclerotic heart disease of [place] coronary artery without angina pectoris (6) HTN (hypertension) Priority: Secondary Status: Chronic Qualifiers: Hypertension type: essential hypertension Qualified Code(s): I10 - Essential (primary) hypertension (7) Depression Priority: Secondary Status: Chronic Qualifiers: Depression Type: unspecified Qualified Code(s): F32.9 - Major depressive disorder, single episode, unspecified (8) Nausea & vomiting Priority: Primary Status: Resolved Qualifiers: Vomiting type: unspecified Vomiting Intractability: non-intractable Qualified Code(s): R11.2 - Nausea with vomiting, unspecified (9) Prerenal azotemia Priority: Primary Status: Resolved - Discharge Medications Home Medications: Ondansetron [Zofran ODT] 8 mg SL TID #15 tab.rapdis 08/24/16 [Rx] Albuterol Sulfate [Proair Hfa] 2 puff IH Q4H PRN 08/25/16 [History] Aspirin 81 mg PO DAILY 08/25/16 [History] Brimonidine Tartrate [Alphagan P] 1 drop OP DAILY 08/25/16 [History] Captopril 50 mg PO TID 08/25/16 [History] Clopidogrel [Plavix] 75 mg PO DAILY 08/25/16 [History] Docusate [Colace] 100 mg PO BID PRN 08/25/16 [History] Escitalopram [Lexapro] 20 mg PO DAILY 08/25/16 [History] Estradiol [Estrace] 1 appl VG 3XW 08/25/16 [History] Ipratropium/Albuterol Neb [Duoneb] 3 ml IH Q6HR PRN 08/25/16 [History] L. Acidophilus/Pectin, [place] [Acidophilus Probiotic Capsule] 1 cap PO DAILY [History] Loratadine [Allergy Relief] 10 mg PO DAILY 08/25/16 [History] Melatonin 3 mg PO HS PRN 08/25/16 [History] Metoprolol [Lopressor] 25 mg PO BID 08/25/16 [History] Mirtazapine [Remeron] 15 mg PO HS 08/25/16 [History] Nitroglycerin [Nitrostat] 0.4 mg SL AD PRN 08/25/16 [History] Omeprazole [PriLOSEC] 20 mg PO BIDAC 08/25/16 [History] Polyvinyl Alcohol/Povidone/Pf [Refresh Classic Eye Drops] 1 drop OP DAILY [History] Quetiapine Fumarate [Seroquel] 12.5 - 25 mg PO HS PRN 08/25/16 [History] Atorvastatin [Lipitor] 10 mg PO HS tablet 08/29/16 [Rx] Allergies/Adverse Reactions: Allergies Belladonna Alkaloids [From Bellergal-S] Adverse Reaction (Verified 08/24/16 16: 51) Hives Ergotamine [From Bellergal-S] Adverse Reaction (Verified 08/24/16 16:51) Hives Penicillins Adverse Reaction (Verified 08/24/16 16:49) Hives phenobarbital [From Bellergal-S] Adverse Reaction (Verified 08/24/16 16:51) Hives Sulfa (Sulfonamide Antibiotics) Adverse Reaction (Verified 08/24/16 16:49) Hives Procedures/tests Complete & Pending: Procedures Performed prior 72 hours Category Date Time Status EV carotid duplex imaging BI Routine Y 08/26/16 11:04 Completed EV echocardiogram Routine Y 08/26/16 11:04 Completed Date of admission: 08/26/16 08:06 Primary care physician: Elliot Barahona DO Consults: 08/29/16 08:44 Consult to System Support Technician [CONS] Routine Reason for SW Consult: Placement to SNF Discharging clinician: Kirt Steele Anticipated date of discharge: 08/29/16 - Patient Status Disposition: Transfer SNF Condition: Good Functional capacity at discharge: uses cane/walker Overall status at discharge: patient is back to baseline - Discharge Instructions Instructions: Chronic Hypertension (DC) Follow Up With: Elliot Barahona DO [Primary Care Provider] - 09/02/16 1:00 pm (Scheduled with FOOT [employer]TER Raeann Gomez ) - Diet and Activity Activity: as per physical therapy Interval History: See below Hospital course: Ms. Hector is a 86 year old female admitted and managed for Acute ischemic CVA and Azotemia She has been stable since admission Carotid Artery Doppler negative Echocardiogram report with LVEF 65%, moderate AR, no septal deformities, no LV thrombus Brain MRi with lacunar infarct Patient also with generalized weakness and PT/OT evaluation recommend in- patient therapy She has a PMH of HTN, CAD, Dementia, Depression She is evaluated at bedside today with her family She is medically stable for transfer to in-patient rehab - Time Spent with Patient Total time spent providing and/or coordinating discharge services: Less than 30 minutes - Constitutional Vitals: Temp Pulse Resp BP Pulse Ox 98.2 F 64 16 151/79 97 08/29/16 07:26 08/29/16 07:26 08/29/16 07:26 08/29/16 07:26 08/29/16 07:26 General appearance: Present: A&O X 2, pleasant, no acute distress, obese - Head Head exam: Present: atraumatic, normocephalic - Eye Eye exam: Present: PERRL, conjuntiva pink, sclera anicteric Pupils: Present: PERRL - Neck Neck exam general surgery: Present: supple, trachea midline. Absent: lymphadenopathy - Respiratory Respiratory exam: Present: CTAB. Absent: accessory muscle use, rales, rhonchi, wheezes - Cardiovascular Cardiovascular exam: Present: RRR, +S1, +S2. Absent: diastolic murmur, gallop, rubs, systolic murmur - GI/Abdominal GI/Abdominal exam: Present: normal bowel sounds, soft, no peritoneal signs. Absent: distended, tenderness - Extremities Exam Extremities exam: Present: warm, radial pulses palpable and symetrical. Absent : calf tenderness, cyanotic, pedal edema - Neurological Exam Neurological exam: Present: alert, CN II-XII intact, no focal deficits. Absent : oriented X3, pronater drift, facial droop, speech deficit - Skin Skin exam: Present: dry, intact
[2016-08-29 11:56] VITALS: BP 139/80
[2016-08-29] MEDS ORDERED: Ipratropium/Albuterol Neb 3 ML IH PRN (12:02)
--- NOTE | 2016-08-29 14:05 | Physician Discharge Referral ---
ExtendedCare Referral Info Transfer To: [facility] Provider in Charge: Dr. Steele Provider in Charge after Transfer: PCP Institutional Level of Care: Skilled - Diagnosis (1) CVA (cerebral vascular accident) Priority: Primary Status: Acute (2) Weakness Priority: Primary Status: Acute (3) Altered mental status Priority: Secondary Status: Resolved (4) Dementia Priority: Secondary Status: Chronic (5) CAD (coronary artery disease) Priority: Secondary Status: Chronic (6) HTN (hypertension) Priority: Secondary Status: Chronic (7) Depression Priority: Secondary Status: Chronic (8) Nausea & vomiting Priority: Primary Status: Resolved (9) Prerenal azotemia Priority: Primary Status: Resolved Prognosis: Fair Aware of Diagnosis: Family Aware of Prognosis: Family - Transfer Medications Home Medications: Ondansetron [Zofran ODT] 8 mg SL TID #15 tab.rapdis 08/24/16 [Rx] Albuterol Sulfate [Proair Hfa] 2 puff IH Q4H PRN 08/25/16 [History] Aspirin 81 mg PO DAILY 08/25/16 [History] Brimonidine Tartrate [Alphagan P] 1 drop OP DAILY 08/25/16 [History] Captopril [Captopril] 50 mg PO TID 08/25/16 [History] Clopidogrel [Plavix] 75 mg PO DAILY 08/25/16 [History] Docusate [Colace] 100 mg PO BID PRN 08/25/16 [History] Escitalopram [Lexapro] 20 mg PO DAILY 08/25/16 [History] Estradiol [Estrace] 1 appl VG 3XW 08/25/16 [History] Ipratropium/Albuterol Neb [Duoneb] 3 ml IH Q6HR PRN 08/25/16 [History] L. Acidophilus/Pectin, [place] [Acidophilus Probiotic Capsule] 1 cap PO DAILY [History] Loratadine [Allergy Relief] 10 mg PO DAILY 08/25/16 [History] Melatonin 3 mg PO HS PRN 08/25/16 [History] Metoprolol [Lopressor] 25 mg PO BID 08/25/16 [History] Mirtazapine [Remeron] 15 mg PO HS 08/25/16 [History] Nitroglycerin [Nitrostat] 0.4 mg SL AD PRN 08/25/16 [History] Omeprazole [PriLOSEC] 20 mg PO BIDAC 08/25/16 [History] Polyvinyl Alcohol/Povidone/Pf [Refresh Classic Eye Drops] 1 drop OP DAILY [History] Quetiapine Fumarate [SEROquel] 12.5 - 25 mg PO HS PRN 08/25/16 [History] Atorvastatin [Lipitor] 10 mg PO HS tablet 08/29/16 [Rx] Allergies/Adverse Reactions: Allergies Belladonna Alkaloids [From Bellergal-S] Adverse Reaction (Verified 08/24/16 16: 51) Hives Ergotamine [From Bellergal-S] Adverse Reaction (Verified 08/24/16 16:51) Hives Penicillins Adverse Reaction (Verified 08/24/16 16:49) Hives phenobarbital [From Bellergal-S] Adverse Reaction (Verified 08/24/16 16:51) Hives Sulfa (Sulfonamide Antibiotics) Adverse Reaction (Verified 08/24/16 16:49) Hives - Respiratory Orders Smoking Cessation: Smoking cessation has been advised. For more information, call the [place] Tobacco Quit Line at 0-389-EMAN-NOW. - Advance Directives Code Status: DNR-Arrest/Don't Intubate - Rehabiliation Orders Rehab Potential: Fair - Diet Orders Cardiac CERTIFICATION: I certify that the transfer of the above named patient to an Extended Care Facility is necessary for the continuing treatment of the diagnosis listed. The above information is true and accurate reflection of patient's current condition. Confidential - Redisclosure prohibited without a patient's written consent.
== END 2016-08-29 15:41 | DRG 65 ==
LOC: 2ANU 11:12 → EMEROO 11:12 → 2ANU 15:38
PROVIDERS: ADMIT Hospitalist; ATTEND Internal Medicine